=== PATIENT | female | born 1990 | race American Indian/Alaskan Native ===

== ENCOUNTER 2016-06-10 19:02 | Emergency (ER) | payer MEDICAID, OTHER ==
[2016-06-10 19:10] VITALS: BP 143/89; RESP 20; TEMP 98.3; O2SAT 100
--- NOTE | 2016-06-10 19:47 | ED PDOC ---
HPI: Chest Pain Time Seen by Provider: 06/10/16 19:18 Chief Complaint (Nursing): Chest Pain Chief Complaint (Provider): Chest Pain History Per: Patient History/Exam Limitations: no limitations Onset/Duration Of Symptoms: Days (x2) Current Symptoms Are (Timing): Still Present Severity: Moderate Associated Symptoms: denies: Dyspnea Exacerbating Factors: Movement, Deep Breathing, Other (coughing) Additional Complaint(s): Dhiraj Sesay is a 25 year old female, with no pertinent past medical history, who presents to the ED on 06/10/16 for the evaluation of moderate, left-sided chest pain that she has been experiencing intermittently over the past 2 days. Pain, which reportedly radiates into her left scapula, is further described as worse with movement, deep inspiration and coughing. Additional numbness/ tingling within her left arm also reported, though she denies shortness of breath, back pain or extremity pain/swelling. Does not take oral contraceptives. PMD: Brenda Smith Past Medical History Reviewed: Historical Data, Nursing Documentation, Vital Signs Vital Signs: Last Vital Signs Temp 98.3 F 06/10/16 19:09 Pulse 112 H 06/10/16 19:09 Resp 20 06/10/16 19:09 BP 143/89 06/10/16 19:09 Pulse Ox 100 06/10/16 19:56 - Medical History PMH: No Chronic Diseases - Surgical History Surgical History: No Surg Hx - Family History Family History: States: No Known Family Hx - Allergies Allergies/Adverse Reactions: Allergies Allergy/AdvReac Type Severity Reaction Status Date / Time No Known Allergies Allergy Verified 06/10/16 19:09 SHA Risk Score for UA/NSTEMI - SHA Risk Score Age > 64: NO 3 or more CAD Risk Factors: NO Known CAD (Stenosis greater than 50%): NO Aspirin use in past 7 days: NO Severe Angina: NO EKG ST changes greater than 0.5mm: NO Positive Cardiac Marker: NO SHA Score: 0 Risk %: 5% Wells Criteria for PE - Wells Criteria for Pulmonary Embolism Clinical Signs and Symptoms of DVT: No P.E is #1 Diagnosis, or Equally Likely: No Heart Rate >100: No Immobilization at least 3 days;Surgery previous 4 weeks: No Previous, objectively diagnosed PE or DVT: No Hemoptysis: No Malignancy w/treatment within 6 months, or palliative: No Total Score: 0 Review of Systems ROS Statement: Except As Marked, All Systems Reviewed And Found Negative Cardiovascular: Positive for: Chest Pain (left-sided w/radiation to left shoulder, intermittent, worse with movement/cough/deep inspiration). Negative for: Edema Respiratory: Negative for: Shortness of Breath Musculoskeletal: Negative for: Arm Pain, Back Pain, Leg Pain Neurological: Positive for: Numbness (left arm) Physical Exam - Reviewed Nursing Documentation Reviewed: Yes Vital Signs Reviewed: Yes - Physical Exam Appears: Positive for: Non-toxic, No Acute Distress Head Exam: Positive for: ATRAUMATIC, NORMOCEPHALIC Skin: Positive for: Normal Color, Warm, Dry Eye Exam: Positive for: Normal appearance, PERRL Cardiovascular/Chest: Positive for: Regular Rate, Rhythm, Chest Non Tender. Negative for: Edema, Murmur Respiratory: Positive for: Normal Breath Sounds. Negative for: Respiratory Distress Extremity: Positive for: Normal ROM (x4 extremities). Negative for: Calf Tenderness, Swelling Neurologic/Psych: Positive for: Alert, Oriented - Laboratory Results Result Diagrams: 06/10/16 20:08 06/10/16 20:08 - ECG ECG: Positive for: Interpreted By Me, Viewed By La ECG Rhythm: Positive for: Normal QRS, Normal ST Segment, Sinus Rhythm Rate: 89 O2 Sat by Pulse Oximetry: 100 (RA) Pulse Ox Interpretation: Normal - Radiology X-Ray: Interpreted by Me, Viewed By La X-Ray Interpretation: No Acute Disease Medical Decision Making Medical Decision Makin:18 Initial Impression: chest pain Differential diagnoses include but are not limited to pulmonary embolism, ACS or musculoskeletal pain. Initial Plan: * EKG * CXR * Labs * Troponin I * D-Dimer * Reevaluation EKG shows NSR at 89bpm with normal QRS and ST segments. 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 Scribe Attestation: Documented by Zulay Canales, acting as a scribe for Erika Preston MD. Provider Scribe Attestation: All medical record entries made by the Scribe were at my direction and personally dictated by me. I have reviewed the chart and agree that the record accurately reflects my personal performance of the history, physical exam, medical decision making, and the department course for this patient. I have also personally directed, reviewed, and agree with the discharge instructions and disposition. Disposition - Clinical Impression Clinical Impression: Chest pain - Patient ED Disposition Is Patient to be Admitted: No Doctor Will See Patient In The: Office Counseled Patient/Family Regarding: Studies Performed, Diagnosis, Need For Followup - Disposition Referrals: [facility] [Outside] Disposition: Routine/Home Disposition Time: 20:56 Condition: GOOD Additional Instructions: Take advil for pain. Return for worsening. Follow up with your PCP in 2-3 days. Instructions: Chest Pain (ED)
[2016-06-10 20:19] LABS: BASO % 0.6 % (0.0-2.0); EOS # 0.1 K/uL (0.0-0.7); EOS % 0.8 % (0.0-4.0); HEMATOCRIT 33.5 % (34.0-47.0); LYMPH # 1.5 K/uL (1.0-4.3); LYMPH % 20.3 % (20.0-40.0); MEAN CELL VOLUME 94.9 fl (81.0-99.0); MEAN CORPUSCULAR HEMOGLOBIN 32.4 pg (27.0-31.0); MEAN CORPUSCULAR HGB CONC 34.1 g/dL (33.0-37.0); MEAN PLATELET VOLUME 7.8 fl (7.2-11.7); MONO # 0.5 K/uL (0.0-0.8); MONO % 6.3 % (0.0-10.0); NEUT # 5.1 K/uL (1.8-7.0); RED CELL DISTRIBUTION WIDTH 13.6 % (11.5-14.5); WHITE BLOOD COUNT 7.1 K/uL (4.8-10.8)
[2016-06-10 20:30] LABS: BLOOD UREA NITROGEN 11 mg/dl (7-17); CALCIUM 9.5 mg/dL (8.4-10.2); CARBON DIOXIDE 22 mmol/L (22-30); CHLORIDE 106 mmol/L (98-107); GFR AFRICAN-AMERICAN > 60; GLUCOSE,RANDOM 87 mg/dL (65-105); POTASSIUM 4.2 MMOL/L (3.6-5.0); SODIUM 142 mmol/l (132-148)
[2016-06-10 20:56] VITALS: PULSE 89
--- NOTE | 2016-06-11 08:34 | RAD ---
PROCEDURE: CHEST RADIOGRAPH, 1 VIEW HISTORY: chest pain COMPARISON: None available. FINDINGS: LUNGS: Clear. PLEURA: No pneumothorax or pleural fluid seen. CARDIOVASCULAR: Normal. OSSEOUS STRUCTURES: No significant abnormalities. VISUALIZED UPPER ABDOMEN: Normal. OTHER FINDINGS: None. IMPRESSION: No active disease.
--- NOTE | 2016-06-11 09:04 | CARD ---
APPROVED REPORT EKG Measurement Heart [id number] <Conclusion> Normal sinus rhythm with sinus arrhythmia Nonspecific ST abnormality Abnormal ECG
== END 2016-06-10 21:19 | disposition home or self-care (01) ==
LOC: H.ER 19:02
DX: R07.9 Chest pain, unspecified (principal)